=== PATIENT | male | born 1945 | race Caucasian/White ===

== ENCOUNTER 2023-05-25 14:18 | Inpatient (IN) | payer OTHER ==
[2023-05-25 15:28] LABS: HEMATOCRIT 38.4 % (35.4-49); HEMOGLOBIN 12.8 G/dL (11.7-16.9); MCH 30.2 pg (25.7-33.7); MCHC 33.2 g/dl (32.0-35.9); MEAN CELL VOLUME 91.1 fl (80-96); MEAN PLT VOLUME 7.8 fl (7.5-11.1); RBC 4.22 10^6/uL (4.00-5.60); RDW 14.8 % (11.9-15.9); WHITE BLOOD COUNT 7.9 10^3/uL (4.0-10.8)
[2023-05-25 15:38] LABS: PLATELET ESTIMATE ADEQUATE
[2023-05-25 15:47] LABS: ALBUMIN 3.8 g/dl (3.4-5.0); CREATININE 0.8 mg/dl (0.6-1.3); POTASSIUM 3.9 mmol/L (3.5-5.1); SGOT/AST 62.9 U/L (15-37); SGPT/ALT 73.6 U/L (7-52); TOT PROT 6.2 g/dl (6.4-8.2)
[2023-05-25 16:16] LABS: INR 1.42 (0.83-1.09); PROTHROMBIN TIME (PATIENT) 16.4 SEC (9.7-13.0)
[2023-05-25 16:19] LABS: ACTIVATED PTT 33.3 SECONDS (25.2-36.5)
[2023-05-25] MEDS: SODIUM CHLORIDE 1,000 ML IV SCH (21:51)
[2023-05-26 08:48] LABS: HEMATOCRIT 35.9 % (35.4-49); HEMOGLOBIN 12.1 G/dL (11.7-16.9); MCH 30.4 pg (25.7-33.7); MCHC 33.6 g/dl (32.0-35.9); MEAN CELL VOLUME 90.4 fl (80-96); MEAN PLT VOLUME 8.1 fl (7.5-11.1); PLATELET COUNT 336.5 10^3/uL (134-434); RBC 3.97 10^6/uL (4.00-5.60); RDW 14.8 % (11.9-15.9); WHITE BLOOD COUNT 6.4 10^3/uL (4.0-10.8)
[2023-05-26 09:06] LABS: BLOOD UREA NITROGEN 11.7 mg/dl (7-18); CALCIUM 9.6 mg/dl (8.5-10.1); CREATININE 0.8 mg/dl (0.6-1.3); MAGNESIUM 1.7 mg/dL (1.8-2.4); POTASSIUM 3.9 mmol/L (3.5-5.1)
[2023-05-26] MEDS ORDERED: LORazepam 2 MG/ML SDV VIAL IVPUSH PRN (09:06)
[2023-05-26] MEDS ORDERED: LOSARTAN POTASSIUM 25 MG TABLET PO SCH (10:00)
[2023-05-26] MEDS: LOSARTAN POTASSIUM 25 MG TABLET PO SCH (10:21)
[2023-05-26] MEDS: amLODIPine BESYLATE 10 MG TABLET (FP) PO SCH (10:21)
[2023-05-26 15:19] VITALS: BMI 30.2
[2023-05-27] MEDS: LOSARTAN POTASSIUM 25 MG TABLET PO SCH (10:08)
[2023-05-27] MEDS: amLODIPine BESYLATE 10 MG TABLET (FP) PO SCH (10:08)
[2023-05-28] MEDS: SODIUM CHLORIDE 1,000 ML IV SCH (10:46)
[2023-05-28] MEDS: LOSARTAN POTASSIUM 25 MG TABLET PO SCH (10:46)
[2023-05-28] MEDS: amLODIPine BESYLATE 10 MG TABLET (FP) PO SCH (10:46)
[2023-05-28 11:25] LABS: HEMATOCRIT 34.7 % (35.4-49); HEMOGLOBIN 11.6 G/dL (11.7-16.9); MCH 30.6 pg (25.7-33.7); MCHC 33.5 g/dl (32.0-35.9); MEAN CELL VOLUME 91.4 fl (80-96); MEAN PLT VOLUME 8.2 fl (7.5-11.1); PLATELET COUNT 287.2 10^3/uL (134-434); RDW 15.2 % (11.9-15.9); WHITE BLOOD COUNT 6.9 10^3/uL (4.0-10.8)
[2023-05-28 11:39] LABS: ALBUMIN 3.4 g/dl (3.4-5.0); BILIRUBIN,TOTAL 0.9 mg/dl (0.2-1); BLOOD UREA NITROGEN 11.2 mg/dl (7-18); CALCIUM 9.3 mg/dl (8.5-10.1); CREATININE 0.7 mg/dl (0.6-1.3); POTASSIUM 4.2 mmol/L (3.5-5.1); SGOT/AST 54.3 U/L (15-37); SGPT/ALT 58.1 U/L (7-52); TOT PROT 5.9 g/dl (6.4-8.2)
[2023-05-29 07:39] LABS: HEMATOCRIT 38.8 % (35.4-49); HEMOGLOBIN 12.9 G/dL (11.7-16.9); MCH 30.2 pg (25.7-33.7); MCHC 33.2 g/dl (32.0-35.9); MEAN CELL VOLUME 90.9 fl (80-96); MEAN PLT VOLUME 8.1 fl (7.5-11.1); PLATELET COUNT 331.2 10^3/uL (134-434); RBC 4.27 10^6/uL (4.00-5.60); RDW 14.9 % (11.9-15.9); WHITE BLOOD COUNT 8.6 10^3/uL (4.0-10.8)
[2023-05-29 09:08] LABS: ALBUMIN 3.9 g/dl (3.4-5.0); BLOOD UREA NITROGEN 10.4 mg/dl (7-18); CALCIUM 9.9 mg/dl (8.5-10.1); CREATININE 0.8 mg/dl (0.6-1.3); POTASSIUM 4.1 mmol/L (3.5-5.1); SGOT/AST 74.7 U/L (15-37); SGPT/ALT 82.4 U/L (7-52); TOT PROT 6.8 g/dl (6.4-8.2)
[2023-05-29] MEDS: LOSARTAN POTASSIUM 25 MG TABLET PO SCH (09:24)
[2023-05-29] MEDS: amLODIPine BESYLATE 10 MG TABLET (FP) PO SCH (09:24)
[2023-05-29 10:07] LABS: PLATELET ESTIMATE SLT INCREASE
[2023-05-29 10:19] LABS: BILIRUBIN,TOTAL 1.4 mg/dl (0.2-1)
[2023-05-29 21:38] VITALS: RESP 18
[2023-05-30] MEDS ORDERED: traMADol HCL 50 MG TABLET PO PRN (08:30)
[2023-05-30] MEDS ORDERED: IBUPROFEN 600 MG TABLET (FP) PO PRN (08:30)
[2023-05-30] MEDS ORDERED: KETOROLAC TROMETHAMINE 15 MG/ML VIAL IVPUSH PRN (08:30)
[2023-05-30] MEDS ORDERED: SIMETHICONE 80 MG TAB.CHEW (FP) PO PRN (08:31)
[2023-05-30 09:02] LABS: MCH 29.2 pg (25.7-33.7); MCHC 32.4 g/dl (32.0-35.9); MEAN CELL VOLUME 90.1 fl (80-96); MEAN PLT VOLUME 9.3 fl (7.5-11.1); PLATELET COUNT 321 10^3/uL (134-434); RBC 4.11 M/mm3 (4.00-5.60); RDW 14.3 % (11.9-15.9); WHITE BLOOD COUNT 8.5 K/mm3 (4.0-10.0)
[2023-05-30 09:23] LABS: ALBUMIN 3.1 g/dl (3.4-5.0); BLOOD UREA NITROGEN 11.3 mg/dL (7-18); CALCIUM 9.8 mg/dL (8.5-10.1)
[2023-05-30 09:26] LABS: CREATININE 0.8 mg/dL (0.55-1.3)
[2023-05-30 09:28] LABS: BILIRUBIN,TOTAL 1.2 mg/dL (0.2-1); TOT PROT 6.4 g/dl (6.4-8.2)
[2023-05-30] MEDS ORDERED: ENOXAPARIN NA (PORCINE) 40 MG/0.4 ML DISP.SYRIN SQ SCH (10:00)
[2023-05-30] MEDS: LOSARTAN POTASSIUM 25 MG TABLET PO SCH (10:08)
[2023-05-30] MEDS: amLODIPine BESYLATE 10 MG TABLET (FP) PO SCH (10:08)
[2023-05-30] MEDS ORDERED: ENOXAPARIN NA (PORCINE) 100 MG/1 ML DISP.SYRIN SQ SCH (10:15)
[2023-05-30] MEDS: SODIUM CHLORIDE 1,000 ML IV SCH (12:08)
[2023-05-30] MEDS ORDERED: ENOXAPARIN NA (PORCINE) 40 MG/0.4 ML DISP.SYRIN SQ ONE (13:00)
[2023-05-30] MEDS: PANTOPRAZOLE 40 MG TABLET PO SCH (13:07)
[2023-05-30] MEDS ORDERED: LACTATED RINGERS SOLUTION 1,000 ML/1,000 ML INFUS.BAG IV STA (13:36)
[2023-05-30] MEDS: MAG HYDROX/AL HYDROX/SIMETH -MYLANTA- ORAL SUSPENSION PO SCH ×2 (15:34→15:37)
[2023-05-30] MEDS: MAG HYDROX/AL HYDROX/SIMETH 30 ML UNIT-DOSE CUP PO SCH (22:29)
[2023-05-30] MEDS: ENOXAPARIN NA (PORCINE) 100 MG/1 ML DISP.SYRIN SQ SCH (22:30)
[2023-05-31] MEDS: MAG HYDROX/AL HYDROX/SIMETH -MYLANTA- ORAL SUSPENSION PO SCH (00:43)
[2023-05-31] MEDS: MAG HYDROX/AL HYDROX/SIMETH 30 ML UNIT-DOSE CUP PO SCH (06:16)
[2023-05-31 07:36] VITALS: BP 128/60; PULSE 76; TEMP 98.6
[2023-05-31] MEDS: amLODIPine BESYLATE 10 MG TABLET (FP) PO SCH (09:49)
[2023-05-31] MEDS: ENOXAPARIN NA (PORCINE) 100 MG/1 ML DISP.SYRIN SQ SCH (09:49)
[2023-05-31] MEDS: PANTOPRAZOLE 40 MG TABLET PO SCH (09:49)
[2023-05-31] MEDS: LOSARTAN POTASSIUM 25 MG TABLET PO SCH (09:49)
== END 2023-05-31 13:06 | disposition home or self-care (01) | DRG 435 ==
LOC: FER 14:18 → FM/S 18:07 → J8W 05-29 11:45
PROVIDERS: ADMIT Internal Medicine; ATTEND Internal Medicine
PROC: 0FB13ZX Excision of Right Lobe Liver, Percutaneous Approach, Diagnostic (ICD-10-PCS; principal; 2023-05-29)
DX: C25.7 Malignant neoplasm of other parts of pancreas (principal); I81 Portal vein thrombosis; C78.7 Secondary malignant neoplasm of liver and intrahepatic bile duct; C78.00 Secondary malignant neoplasm of unspecified lung; I47.20 Ventricular tachycardia, unspecified; J90 Pleural effusion, not elsewhere classified; I10 Essential (primary) hypertension; E78.5 Hyperlipidemia, unspecified; K80.80 Other cholelithiasis without obstruction; E66.9 Obesity, unspecified; Z68.30 Body mass index [BMI] 30.0-30.9, adult; K82.8 Other specified diseases of gallbladder; R74.01 Elevation of levels of liver transaminase levels; R91.8 Other nonspecific abnormal finding of lung field; Z85.46 Personal history of malignant neoplasm of prostate; Z96.653 Presence of artificial knee joint, bilateral
CPT/HCPCS: 0241U-QW; 36415; 47000; 71046-TC-FY; 71275-TC; 74177-TC; 74183-TC; 76700-TC; 77012-TC; 80048; 80053; 81003; 82105; 82378; 82962; 83605; 83690; 83735; 84153; 84484; 85027; 85610; 85730; 86301; 86850; 86900; 86901; 87040; 88307-TC; 88341-TC; 93005; 99285-25; A9579; Q9967

== ENCOUNTER 2023-06-16 04:44 | Day surgery (SDC) | payer OTHER ==
[2023-06-14 12:11] VITALS: BMI 29.7
[2023-06-16 08:17] LABS: BASO % 0.8 % (0-2.0); EOS % 4.6 % (0-4.5); HEMATOCRIT 35.4 % (35.4-49); HEMOGLOBIN 11.5 GM/dL (11.7-16.9); LYMPH % 14.9 % (8-40); MCH 29.3 pg (25.7-33.7); MCHC 32.4 g/dl (32.0-35.9); MEAN CELL VOLUME 90.5 fl (80-96); MEAN PLT VOLUME 9.4 fl (7.5-11.1); MONO % 9.2 % (3.8-10.2); NEUT % 70.5 % (42.8-82.8); PLATELET COUNT 276 10^3/uL (134-434); RBC 3.91 M/mm3 (4.00-5.60); RDW 15.2 % (11.9-15.9)
[2023-06-16 08:18] LABS: INR 1.33 (0.83-1.09); PROTHROMBIN TIME (PATIENT) 15.4 SEC (9.7-13.0)
[2023-06-16] MEDS ORDERED: MIDAZOLAM HCL 2 MG/2 ML SINGLE DOSE VIAL ONE (10:21)
[2023-06-16] MEDS ORDERED: MIDAZOLAM HCL 2 MG/2 ML SINGLE DOSE VIAL IVPUSH ONE (10:45)
[2023-06-16 12:41] VITALS: BP 136/74; PULSE 76; RESP 18; TEMP 98.6
== END 2023-06-16 12:40 | disposition home or self-care (01) ==
LOC: JRADIR 04:44
PROVIDERS: ATTEND Registered Nurse
PROC: 0JH63WZ Insertion of Totally Implantable Vascular Access Device into Chest Subcutaneous Tissue and Fascia, Percutaneous Approach (ICD-10-PCS; principal; 2023-06-16)
PROC: 02HV33Z Insertion of Infusion Device into Superior Vena Cava, Percutaneous Approach (ICD-10-PCS; 2023-06-16)
PROC: B518ZZA Fluoroscopy of Superior Vena Cava, Guidance (ICD-10-PCS; 2023-06-16)
DX: C25.9 Malignant neoplasm of pancreas, unspecified (principal)
CPT/HCPCS: 36561; 77001; C1788; 36415; 85025; 85610

== ENCOUNTER 2023-06-21 13:52 | Day surgery (SDC) | payer OTHER ==
[~2023-06-21 13:52] MED LIST: DEXAMETHASONE SODIUM PHOSPHATE IVPB ONE; GEMCITABINE HCL IVPB ONE; GRANISETRON HCL IVPB ONE; SODIUM CHLORIDE IVPB ONE
[2023-06-21 14:49] LABS: BASO % 0.9 % (0-2.0); EOS % 3.8 % (0-4.5); HEMATOCRIT 33.6 % (35.4-49); HEMOGLOBIN 11.2 GM/dL (11.7-16.9); MCH 29.6 pg (25.7-33.7); MCHC 33.2 g/dl (32.0-35.9); MEAN PLT VOLUME 9.2 fl (7.5-11.1); NEUT % 70.3 % (42.8-82.8); PLATELET COUNT 284 10^3/uL (134-434); RBC 3.78 M/mm3 (4.00-5.60); RDW 15.9 % (11.9-15.9); WHITE BLOOD COUNT 7.1 K/mm3 (4.0-10.0)
[2023-06-21 15:00] LABS: POTASSIUM 4.2 mmol/L (3.5-5.1)
[2023-06-21 15:04] LABS: BLOOD UREA NITROGEN 15.8 mg/dL (7-18); CALCIUM 10.2 mg/dL (8.5-10.1)
[2023-06-21 15:07] LABS: BILIRUBIN,DIRECT 1.6 mg/dL (0.0-0.2); CREATININE 0.9 mg/dL (0.55-1.3)
[2023-06-21 15:09] LABS: BILIRUBIN,TOTAL 2.6 mg/dL (0.2-1); TOT PROT 6.7 g/dl (6.4-8.2)
[2023-06-21 16:12] VITALS: PULSE 86; RESP 18; TEMP 98.5
[2023-06-21] MEDS ORDERED: BACITRACIN ZINC 15 GM TUBE TOPICAL OINTMENT TP SCH (17:30)
[2023-06-21 17:47] VITALS: BP 137/69
[2023-06-21] MEDS ORDERED: PORTA CATH FLUSH 10 ML IVPUSH PRN (17:47)
== END 2023-06-21 17:45 | disposition home or self-care (01) ==
LOC: JONCCHEMO 13:52 → J7W 13:53 → JONCCHEMO 17:45
PROVIDERS: ATTEND Specialist
DX: Z51.11 Encounter for antineoplastic chemotherapy (principal)
CPT/HCPCS: 36415; 80048; 80076; 85025; 96413

== ENCOUNTER 2023-06-28 11:35 | Day surgery (SDC) | payer OTHER ==
[2023-06-28 12:12] LABS: HEMATOCRIT 30.7 % (35.4-49); HEMOGLOBIN 10.5 GM/dL (11.7-16.9); MCH 29.8 pg (25.7-33.7); MCHC 34.2 g/dl (32.0-35.9); MEAN CELL VOLUME 87.1 fl (80-96); MEAN PLT VOLUME 8.6 fl (7.5-11.1); PLATELET COUNT 203 10^3/uL (134-434); RBC 3.52 M/mm3 (4.00-5.60); RDW 16.3 % (11.9-15.9); WHITE BLOOD COUNT 8.3 K/mm3 (4.0-10.0)
[2023-06-28 12:26] LABS: POTASSIUM 3.6 mmol/L (3.5-5.1)
[2023-06-28 12:28] LABS: CALCIUM 9.5 mg/dL (8.5-10.1)
[2023-06-28 12:29] LABS: ALBUMIN 2.6 g/dl (3.4-5.0); BLOOD UREA NITROGEN 13.9 mg/dL (7-18)
[2023-06-28 12:32] LABS: BILIRUBIN,DIRECT 2.6 mg/dL (0.0-0.2); CREATININE 0.8 mg/dL (0.55-1.3)
[2023-06-28 12:34] LABS: BILIRUBIN,TOTAL 3.3 mg/dL (0.2-1); TOT PROT 6.2 g/dl (6.4-8.2)
[2023-06-28 12:35] LABS: ANISOCYTOSIS 0; HELMET CELLS 0; HOWELL-JOLLY BODIES 0; MACROCYTOSIS 0; OVALOCYTE 0; ROULEAU 0; SICKELED CELLS 0; TARGET CELLS 0; TEAR DROP CELLS 0; TOXIC GRANULATION 0
[2023-06-28 17:28] VITALS: TEMP 98.2
[2023-06-28 17:34] VITALS: BP 136/90; PULSE 82; RESP 18
[2023-06-28] MEDS ORDERED: PORTA CATH FLUSH 10 ML IVPUSH PRN (17:34)
== END 2023-06-28 15:50 | disposition home or self-care (01) ==
LOC: JONCCHEMO 11:35 → J7W 11:38 → JONCCHEMO 15:50
PROVIDERS: ATTEND Specialist
DX: Z51.11 Encounter for antineoplastic chemotherapy (principal); C78.89 Secondary malignant neoplasm of other digestive organs; Z85.46 Personal history of malignant neoplasm of prostate
CPT/HCPCS: 36415; 80048; 80076; 85025; 96367; 96413

== ENCOUNTER 2023-07-24 09:07 | Day surgery (SDC) | payer OTHER ==
[2023-07-24] MEDS ORDERED: DEXAMETHASONE SODIUM PHOSPHATE 10 MG in SODIUM CHLORIDE 50 ML IVPB ONE (10:00)
[2023-07-24] MEDS ORDERED: FOSAPREPITANT DIMEGLUMINE 150 MG in SODIUM CHLORIDE 145 ML IVPB ONE (10:00)
[2023-07-24] MEDS ORDERED: ATROPINE SO4 0.4 MG/1 ML VIAL IVPUSH ONE (10:00)
[2023-07-24] MEDS ORDERED: PALONOSETRON HCL 0.25 MG/5 ML VIAL IVPUSH ONE (10:00)
[2023-07-24 10:11] LABS: BASO % 1.3 % (0-2.0); EOS % 2.1 % (0-4.5); HEMATOCRIT 31.2 % (35.4-49); HEMOGLOBIN 10.7 GM/dL (11.7-16.9); LYMPH % 12.7 % (8-40); MCH 32.5 pg (25.7-33.7); MCHC 34.3 g/dl (32.0-35.9); MEAN CELL VOLUME 94.9 fl (80-96); MEAN PLT VOLUME 9.6 fl (7.5-11.1); MONO % 9.6 % (3.8-10.2); NEUT % 74.3 % (42.8-82.8); PLATELET COUNT 209 10^3/uL (134-434); RBC 3.29 M/mm3 (4.00-5.60); WHITE BLOOD COUNT 8.2 K/mm3 (4.0-10.0)
[2023-07-24 10:43] LABS: POTASSIUM 3.2 mmol/L (3.5-5.1)
[2023-07-24 10:45] LABS: ALBUMIN 2.4 g/dl (3.4-5.0); CALCIUM 9.5 mg/dL (8.5-10.1)
[2023-07-24 10:46] LABS: BLOOD UREA NITROGEN 10.4 mg/dL (7-18)
[2023-07-24 10:47] LABS: BILIRUBIN,DIRECT 2.2 mg/dL (0.0-0.2)
[2023-07-24 10:48] LABS: CREATININE 0.8 mg/dL (0.55-1.3)
[2023-07-24 10:49] LABS: ANISOCYTOSIS 2+; MACROCYTOSIS 1+
[2023-07-24 10:50] LABS: BILIRUBIN,TOTAL 2.8 mg/dL (0.2-1); TOT PROT 5.6 g/dl (6.4-8.2)
[2023-07-24] MEDS ORDERED: POTASSIUM CHLORIDE TABS 20 MEQ TABLET.ER (FP) PO ONE (12:15)
[2023-07-24] MEDS ORDERED: DEXTROSE 5% IVPB ONE ×2 (12:30→13:00)
[2023-07-24] MEDS ORDERED: LEUCOVORIN CALCIUM IVPB ONE (12:30)
[2023-07-24] MEDS ORDERED: WATER IVPB ONE ×2 (12:30→13:00)
[2023-07-24] MEDS ORDERED: IRINOTECAN HCL IVPB ONE (13:00)
[2023-07-24] MEDS ORDERED: FLUOROURACIL CP ONE (14:30)
[2023-07-24] MEDS ORDERED: SODIUM CHLORIDE CP ONE (14:30)
[2023-07-24 15:30] VITALS: TEMP 97.9
[2023-07-24] MEDS ORDERED: PORTA CATH FLUSH 10 ML IVPUSH PRN (15:30)
[2023-07-24 18:47] VITALS: BP 104/71; PULSE 89; RESP 18
== END 2023-07-24 18:10 | disposition home or self-care (01) ==
LOC: JONCCHEMO 09:07 → J7W 09:14 → JONCCHEMO 18:10
PROVIDERS: ATTEND Specialist
PROC: 3E04305 Introduction of Other Antineoplastic into Central Vein, Percutaneous Approach (ICD-10-PCS; principal; 2023-07-24)
PROC: 3E043GC Introduction of Other Therapeutic Substance into Central Vein, Percutaneous Approach (ICD-10-PCS; 2023-07-24)
PROC: 3E04305 Introduction of Other Antineoplastic into Central Vein, Percutaneous Approach (ICD-10-PCS; 2023-07-24)
DX: Z51.11 Encounter for antineoplastic chemotherapy (principal); C78.89 Secondary malignant neoplasm of other digestive organs; Z85.46 Personal history of malignant neoplasm of prostate
CPT/HCPCS: 36415; 80048; 80076; 82378; 85025; 86301; 96366; 96367; 96375; 96413; 96415; 96417; G0498; J1453; J2469; J9206; J9263

== ENCOUNTER 2023-07-26 13:21 | Day surgery (SDC) | payer OTHER ==
[2023-07-26 16:39] VITALS: BP 111/68; PULSE 89; RESP 18; TEMP 98
[2023-07-26] MEDS ORDERED: PORTA CATH FLUSH 10 ML IVPUSH PRN (16:40)
== END 2023-07-26 14:30 | disposition home or self-care (01) ==
LOC: JONCCHEMO 13:21 → J7W 13:22 → JONCCHEMO 14:30
PROVIDERS: ATTEND Specialist
DX: Z53.8 Procedure and treatment not carried out for other reasons (principal)
CPT/HCPCS: 96365

== ENCOUNTER 2023-08-09 13:09 | Day surgery (SDC) | payer OTHER ==
[2023-08-09 13:06] LABS: EOS % 5.2 % (0-4.5); HEMATOCRIT 31.3 % (35.4-49); HEMOGLOBIN 10.7 GM/dL (11.7-16.9); LYMPH % 27.1 % (8-40); MCH 32.6 pg (25.7-33.7); MCHC 34.2 g/dl (32.0-35.9); MEAN CELL VOLUME 95.4 fl (80-96); MEAN PLT VOLUME 9.1 fl (7.5-11.1); MONO % 10.7 % (3.8-10.2); PLATELET COUNT 282 10^3/uL (134-434); RBC 3.29 M/mm3 (4.00-5.60); RDW 19.9 % (11.9-15.9); WHITE BLOOD COUNT 4.8 K/mm3 (4.0-10.0)
[~2023-08-09 13:09] MED LIST changes: +ATROPINE SO4 0.4 MG/1 ML VIAL IVPUSH ONE; +DEXAMETHASONE SODIUM PHOSPHATE 10 MG in SODIUM CHLORIDE 50 ML IVPB ONE; -DEXAMETHASONE SODIUM PHOSPHATE IVPB ONE; +DEXTROSE 5% IVPB ONE; +FOSAPREPITANT DIMEGLUMINE 150 MG in SODIUM CHLORIDE 145 ML IVPB ONE; -GEMCITABINE HCL IVPB ONE; -GRANISETRON HCL IVPB ONE; +IRINOTECAN HCL IVPB ONE; +LEUCOVORIN CALCIUM IVPB ONE; +PALONOSETRON HCL 0.25 MG/5 ML VIAL IVPUSH ONE; -SODIUM CHLORIDE IVPB ONE; +WATER IVPB ONE
[2023-08-09 13:24] LABS: POTASSIUM 3.8 mmol/L (3.5-5.1)
[2023-08-09 13:26] LABS: ALBUMIN 2.4 g/dl (3.4-5.0); BLOOD UREA NITROGEN 8.4 mg/dL (7-18); CALCIUM 9.7 mg/dL (8.5-10.1)
[2023-08-09 13:29] LABS: BILIRUBIN,DIRECT 2.3 mg/dL (0.0-0.2); CREATININE 0.7 mg/dL (0.55-1.3)
[2023-08-09 13:31] LABS: BILIRUBIN,TOTAL 2.7 mg/dL (0.2-1)
[2023-08-09] MEDS ORDERED: SODIUM CHLORIDE CP ONE (14:00)
[2023-08-09] MEDS ORDERED: FLUOROURACIL CP ONE (14:00)
[2023-08-09 18:34] VITALS: BP 123/70; PULSE 99; RESP 20; TEMP 98.1
[2023-08-09] MEDS ORDERED: PORTA CATH FLUSH 10 ML IVPUSH PRN (18:36)
== END 2023-08-09 19:34 | disposition home or self-care (01) ==
LOC: JONCCHEMO 13:09 → J7W 13:10 → JONCCHEMO 19:34
PROVIDERS: ATTEND Internal Medicine Hematology & Oncology
DX: Z51.11 Encounter for antineoplastic chemotherapy (principal); C25.2 Malignant neoplasm of tail of pancreas; C78.7 Secondary malignant neoplasm of liver and intrahepatic bile duct; C78.00 Secondary malignant neoplasm of unspecified lung
CPT/HCPCS: 36415; 80048; 80076; 85025; 96366; 96367; 96375; 96413; 96415; 96417; G0498; J1453; J2469; J9206; J9263

== ENCOUNTER 2023-08-11 16:30 | Day surgery (SDC) | payer OTHER ==
[2023-08-11 17:11] VITALS: BP 113/57; PULSE 75; RESP 18; TEMP 98.1
[2023-08-11] MEDS ORDERED: PORTA CATH FLUSH 10 ML IVPUSH PRN (17:13)
== END 2023-08-11 17:10 | disposition home or self-care (01) ==
LOC: JONCCHEMO 16:30
PROVIDERS: ATTEND Internal Medicine Hematology & Oncology
DX: Z53.8 Procedure and treatment not carried out for other reasons (principal)

== ENCOUNTER 2023-09-06 08:52 | Day surgery (SDC) | payer OTHER ==
[~2023-09-06 08:52] MED LIST changes: -ATROPINE SO4 0.4 MG/1 ML VIAL IVPUSH ONE; -DEXAMETHASONE SODIUM PHOSPHATE 10 MG in SODIUM CHLORIDE 50 ML IVPB ONE; -DEXTROSE 5% IVPB ONE; -FOSAPREPITANT DIMEGLUMINE 150 MG in SODIUM CHLORIDE 145 ML IVPB ONE; -IRINOTECAN HCL IVPB ONE; -LEUCOVORIN CALCIUM IVPB ONE; -PALONOSETRON HCL 0.25 MG/5 ML VIAL IVPUSH ONE; +SODIUM CHLORIDE 250 ML IV ONE; -WATER IVPB ONE
[2023-09-06] MEDS ORDERED: DEXAMETHASONE SODIUM PHOSPHATE 10 MG in SODIUM CHLORIDE 50 ML IVPB ONE (09:30)
[2023-09-06] MEDS ORDERED: PALONOSETRON HCL 0.25 MG/5 ML VIAL IVPUSH ONE (09:30)
[2023-09-06] MEDS ORDERED: ATROPINE SO4 0.4 MG/1 ML VIAL IVPUSH ONE (09:30)
[2023-09-06] MEDS ORDERED: FOSAPREPITANT DIMEGLUMINE 150 MG in SODIUM CHLORIDE 145 ML IVPB ONE (09:30)
[2023-09-06 09:54] LABS: BASO % 0.9 % (0-2.0); EOS % 2.5 % (0-4.5); HEMATOCRIT 33.9 % (35.4-49); HEMOGLOBIN 10.9 GM/dL (11.7-16.9); LYMPH % 19.7 % (8-40); MCH 31.7 pg (25.7-33.7); MCHC 32.1 g/dl (32.0-35.9); MEAN CELL VOLUME 98.9 fl (80-96); MEAN PLT VOLUME 9.3 fl (7.5-11.1); MONO % 8.5 % (3.8-10.2); NEUT % 68.4 % (42.8-82.8); PLATELET COUNT 214 10^3/uL (134-434); RBC 3.43 M/mm3 (4.00-5.60); RDW 17.3 % (11.9-15.9); WHITE BLOOD COUNT 4.7 K/mm3 (4.0-10.0)
[2023-09-06 10:10] LABS: POTASSIUM 3.5 mmol/L (3.5-5.1)
[2023-09-06 10:12] LABS: BLOOD UREA NITROGEN 7.3 mg/dL (7-18); CALCIUM 10.2 mg/dL (8.5-10.1)
[2023-09-06 10:13] LABS: ALBUMIN 2.7 g/dl (3.4-5.0)
[2023-09-06 10:15] LABS: BILIRUBIN,DIRECT 1.3 mg/dL (0.0-0.2)
[2023-09-06 10:16] LABS: CREATININE 0.6 mg/dL (0.55-1.3)
[2023-09-06 10:17] LABS: BILIRUBIN,TOTAL 1.7 mg/dL (0.2-1); TOT PROT 5.8 g/dl (6.4-8.2)
[2023-09-06] MEDS ORDERED: WATER IVPB ONE ×2 (12:00→12:30)
[2023-09-06] MEDS ORDERED: DEXTROSE 5% IVPB ONE ×2 (12:00→12:30)
[2023-09-06] MEDS ORDERED: LEUCOVORIN CALCIUM IVPB ONE (12:00)
[2023-09-06] MEDS ORDERED: IRINOTECAN HCL IVPB ONE (12:30)
[2023-09-06] MEDS ORDERED: SODIUM CHLORIDE CP ONE (14:00)
[2023-09-06] MEDS ORDERED: FLUOROURACIL CP ONE (14:00)
[2023-09-06 17:23] VITALS: BP 136/65; PULSE 95; RESP 18; TEMP 98.4
== END 2023-09-06 17:24 | disposition home or self-care (01) ==
LOC: JONCCHEMO 08:52 → J7W 09:01 → JONCCHEMO 17:24
PROVIDERS: ATTEND Internal Medicine Hematology & Oncology
DX: Z51.11 Encounter for antineoplastic chemotherapy (principal); C25.9 Malignant neoplasm of pancreas, unspecified
CPT/HCPCS: 36415; 80048; 80076; 85025; 96366; 96367; 96375; 96413; 96415; 96417; G0498; J1453; J2469; J9206; J9263

== ENCOUNTER 2023-09-08 10:55 | Day surgery (SDC) | payer OTHER ==
[2023-09-08 15:34] VITALS: BP 128/65; PULSE 89; RESP 18; TEMP 98
[2023-09-08] MEDS ORDERED: PORTA CATH FLUSH 10 ML IVPUSH PRN (15:34)
== END 2023-09-08 15:35 | disposition home or self-care (01) ==
LOC: JONCCHEMO 10:55 → J7W 10:56 → JONCCHEMO 15:35
PROVIDERS: ATTEND Internal Medicine Hematology & Oncology
DX: Z53.8 Procedure and treatment not carried out for other reasons (principal)
CPT/HCPCS: 96365

== ENCOUNTER 2023-09-20 08:46 | Day surgery (SDC) | payer OTHER ==
[2023-09-20] MEDS ORDERED: SODIUM CHLORIDE 250 ML IV ONE (09:00)
[2023-09-20 09:25] LABS: BASO % 0.7 % (0-2.0); EOS % 2.5 % (0-4.5); HEMATOCRIT 33.6 % (35.4-49); HEMOGLOBIN 11.1 GM/dL (11.7-16.9); MCH 31.9 pg (25.7-33.7); MCHC 33.1 g/dl (32.0-35.9); MEAN CELL VOLUME 96.4 fl (80-96); MEAN PLT VOLUME 9.1 fl (7.5-11.1); MONO % 9.6 % (3.8-10.2); NEUT % 67.2 % (42.8-82.8); PLATELET COUNT 228 10^3/uL (134-434); RBC 3.48 M/mm3 (4.00-5.60); RDW 16.6 % (11.9-15.9); WHITE BLOOD COUNT 5.1 K/mm3 (4.0-10.0)
[2023-09-20] MEDS ORDERED: DEXAMETHASONE SODIUM PHOSPHATE 10 MG in SODIUM CHLORIDE 50 ML IVPB ONE (09:30)
[2023-09-20] MEDS ORDERED: FOSAPREPITANT DIMEGLUMINE 150 MG in SODIUM CHLORIDE 145 ML IVPB ONE (09:30)
[2023-09-20] MEDS ORDERED: ATROPINE SO4 0.4 MG/1 ML VIAL IVPUSH ONE (09:30)
[2023-09-20] MEDS ORDERED: PALONOSETRON HCL 0.25 MG/5 ML VIAL IVPUSH ONE (09:30)
[2023-09-20 09:54] LABS: POTASSIUM 3.7 mmol/L (3.5-5.1)
[2023-09-20 10:02] LABS: BLOOD UREA NITROGEN 10.1 mg/dL (7-18); CALCIUM 10.4 mg/dL (8.5-10.1)
[2023-09-20 10:04] LABS: BILIRUBIN,DIRECT 1.2 mg/dL (0.0-0.2)
[2023-09-20 10:05] LABS: ALBUMIN 2.9 g/dl (3.4-5.0); CREATININE 0.6 mg/dL (0.55-1.3)
[2023-09-20 10:06] LABS: BILIRUBIN,TOTAL 1.5 mg/dL (0.2-1); TOT PROT 6.2 g/dl (6.4-8.2)
[2023-09-20] MEDS ORDERED: DEXTROSE 5% IVPB ONE ×2 (12:00→12:30)
[2023-09-20] MEDS ORDERED: WATER IVPB ONE ×2 (12:00→12:30)
[2023-09-20] MEDS ORDERED: LEUCOVORIN CALCIUM IVPB ONE (12:00)
[2023-09-20] MEDS ORDERED: IRINOTECAN HCL IVPB ONE (12:30)
[2023-09-20] MEDS ORDERED: SODIUM CHLORIDE CP ONE (14:00)
[2023-09-20] MEDS ORDERED: FLUOROURACIL CP ONE (14:00)
[2023-09-20 17:56] VITALS: BP 118/62; PULSE 93; RESP 18; TEMP 98.1
== END 2023-09-20 16:45 | disposition home or self-care (01) ==
LOC: JONCCHEMO 08:46 → J7W 08:46 → JONCCHEMO 16:45
PROVIDERS: ATTEND Internal Medicine Hematology & Oncology
PROC: 3E04305 Introduction of Other Antineoplastic into Central Vein, Percutaneous Approach (ICD-10-PCS; principal; 2023-09-20)
PROC: 3E033GC Introduction of Other Therapeutic Substance into Peripheral Vein, Percutaneous Approach (ICD-10-PCS; 2023-09-20)
PROC: 3E0337Z Introduction of Electrolytic and Water Balance Substance into Peripheral Vein, Percutaneous Approach (ICD-10-PCS; 2023-09-20)
DX: Z51.11 Encounter for antineoplastic chemotherapy (principal); C25.2 Malignant neoplasm of tail of pancreas
CPT/HCPCS: 36415; 80048; 80076; 85025; 96366; 96367; 96375; 96413; 96415; 96417; G0498; J1453; J2469; J9206; J9263

== ENCOUNTER 2023-09-22 15:47 | Day surgery (SDC) | payer OTHER ==
[2023-09-22 16:13] VITALS: BP 137/68; PULSE 82; RESP 18; TEMP 97.9
[2023-09-22] MEDS ORDERED: PORTA CATH FLUSH 10 ML IVPUSH PRN (16:13)
== END 2023-09-22 16:13 | disposition home or self-care (01) ==
LOC: J7W 15:47 → JONCCHEMO 15:47
PROVIDERS: ATTEND Internal Medicine Hematology & Oncology
DX: Z53.8 Procedure and treatment not carried out for other reasons (principal)

== ENCOUNTER 2023-10-04 08:47 | Day surgery (SDC) | payer OTHER ==
[2023-10-04] MEDS ORDERED: SODIUM CHLORIDE 250 ML IV ONE (09:30)
[2023-10-04 09:31] LABS: EOS % 2.2 % (0-4.5); HEMATOCRIT 32.6 % (35.4-49); HEMOGLOBIN 10.9 GM/dL (11.7-16.9); MCH 32.2 pg (25.7-33.7); MCHC 33.4 g/dl (32.0-35.9); MEAN CELL VOLUME 96.4 fl (80-96); MEAN PLT VOLUME 8.2 fl (7.5-11.1); NEUT % 65.8 % (42.8-82.8); PLATELET COUNT 174 10^3/uL (134-434); RBC 3.38 M/mm3 (4.00-5.60); RDW 16.5 % (11.9-15.9); WHITE BLOOD COUNT 4.9 K/mm3 (4.0-10.0)
[2023-10-04] MEDS ORDERED: PALONOSETRON HCL 0.25 MG/5 ML VIAL IVPUSH ONE (10:00)
[2023-10-04] MEDS ORDERED: DEXAMETHASONE SODIUM PHOSPHATE 10 MG in SODIUM CHLORIDE 50 ML IVPB ONE (10:00)
[2023-10-04] MEDS ORDERED: ATROPINE SO4 0.4 MG/1 ML VIAL IVPUSH ONE (10:00)
[2023-10-04] MEDS ORDERED: FOSAPREPITANT DIMEGLUMINE 150 MG in SODIUM CHLORIDE 145 ML IVPB ONE (10:00)
[2023-10-04 10:52] LABS: POTASSIUM 3.5 mmol/L (3.5-5.1)
[2023-10-04 10:58] LABS: CREATININE 0.6 mg/dL (0.55-1.3)
[2023-10-04 10:59] LABS: ALBUMIN 2.9 g/dl (3.4-5.0); BLOOD UREA NITROGEN 9.1 mg/dL (7-18); CALCIUM 9.9 mg/dL (8.5-10.1)
[2023-10-04 11:00] LABS: BILIRUBIN,TOTAL 1.5 mg/dL (0.2-1)
[2023-10-04 11:01] LABS: BILIRUBIN,DIRECT 1.1 mg/dL (0.0-0.2)
[2023-10-04] MEDS ORDERED: WATER IVPB ONE ×2 (12:30→13:00)
[2023-10-04] MEDS ORDERED: DEXTROSE 5% IVPB ONE ×2 (12:30→13:00)
[2023-10-04] MEDS ORDERED: LEUCOVORIN CALCIUM IVPB ONE (12:30)
[2023-10-04] MEDS ORDERED: IRINOTECAN HCL IVPB ONE (13:00)
[2023-10-04] MEDS ORDERED: SODIUM CHLORIDE CP ONE (14:30)
[2023-10-04] MEDS ORDERED: FLUOROURACIL CP ONE (14:30)
[2023-10-04 17:31] VITALS: BP 142/65; PULSE 100; RESP 20; TEMP 98.2
[2023-10-04] MEDS ORDERED: PORTA CATH FLUSH 10 ML IVPUSH PRN (17:31)
== END 2023-10-04 17:20 | disposition home or self-care (01) ==
LOC: JONCCHEMO 08:47 → J7W 08:49 → JONCCHEMO 17:20
PROVIDERS: ATTEND Internal Medicine Hematology & Oncology
DX: Z51.11 Encounter for antineoplastic chemotherapy (principal); C25.2 Malignant neoplasm of tail of pancreas
CPT/HCPCS: 36415; 80048; 80076; 85025; 96366; 96367; 96375; 96413; 96415; 96417; G0498; J1453; J2469; J9206; J9263

== ENCOUNTER 2023-10-18 08:42 | Day surgery (SDC) | payer OTHER ==
[2023-10-18] MEDS ORDERED: SODIUM CHLORIDE 250 ML IV ONE (09:00)
[2023-10-18] MEDS ORDERED: PALONOSETRON HCL 0.25 MG/5 ML VIAL IVPUSH ONE (09:30)
[2023-10-18] MEDS ORDERED: ATROPINE SO4 0.4 MG/1 ML VIAL IVPUSH ONE (09:30)
[2023-10-18] MEDS ORDERED: FOSAPREPITANT DIMEGLUMINE 150 MG in SODIUM CHLORIDE 145 ML IVPB ONE (09:30)
[2023-10-18] MEDS ORDERED: DEXAMETHASONE SODIUM PHOSPHATE 10 MG in SODIUM CHLORIDE 50 ML IVPB ONE (09:30)
[2023-10-18] MEDS ORDERED: WATER IVPB ONE ×2 (12:00→12:30)
[2023-10-18] MEDS ORDERED: LEUCOVORIN CALCIUM IVPB ONE (12:00)
[2023-10-18] MEDS ORDERED: DEXTROSE 5% IVPB ONE ×2 (12:00→12:30)
[2023-10-18] MEDS ORDERED: IRINOTECAN HCL IVPB ONE (12:30)
[2023-10-18] MEDS ORDERED: FLUOROURACIL CP ONE (14:00)
[2023-10-18] MEDS ORDERED: SODIUM CHLORIDE CP ONE (14:00)
[2023-10-18 16:21] VITALS: TEMP 98.3
[2023-10-18] MEDS ORDERED: PORTA CATH FLUSH 10 ML IVPUSH PRN (16:28)
[2023-10-18 16:29] VITALS: BP 159/76; PULSE 91; RESP 18
== END 2023-10-18 15:45 | disposition home or self-care (01) ==
LOC: JONCCHEMO 08:42 → J7W 08:43 → JONCCHEMO 15:45
PROVIDERS: ATTEND Internal Medicine Hematology & Oncology
DX: Z51.11 Encounter for antineoplastic chemotherapy (principal); C25.2 Malignant neoplasm of tail of pancreas
CPT/HCPCS: 96366; 96367; 96375; 96413; 96415; 96417; G0498; J1453; J2469; J9206; J9263

== ENCOUNTER 2023-10-20 13:20 | Day surgery (SDC) | payer OTHER ==
[2023-10-20 16:03] VITALS: BP 152/77; PULSE 81; RESP 18; TEMP 98.1
[2023-10-20] MEDS ORDERED: PORTA CATH FLUSH 10 ML IVPUSH PRN (16:03)
== END 2023-10-20 13:45 | disposition home or self-care (01) ==
LOC: JONCCHEMO 13:20 → J7W 13:25 → JONCCHEMO 13:45
PROVIDERS: ATTEND Internal Medicine Hematology & Oncology
DX: Z53.8 Procedure and treatment not carried out for other reasons (principal)
CPT/HCPCS: 96365

== ENCOUNTER 2023-11-01 08:37 | Day surgery (SDC) | payer OTHER ==
[2023-11-01] MEDS ORDERED: SODIUM CHLORIDE 250 ML IV ONE (09:00)
[2023-11-01] MEDS ORDERED: DEXAMETHASONE SODIUM PHOSPHATE 10 MG in SODIUM CHLORIDE 50 ML IVPB ONE (09:30)
[2023-11-01] MEDS ORDERED: FOSAPREPITANT DIMEGLUMINE 150 MG in SODIUM CHLORIDE 145 ML IVPB ONE (09:30)
[2023-11-01] MEDS ORDERED: ATROPINE SO4 0.4 MG/1 ML VIAL IVPUSH ONE (09:30)
[2023-11-01] MEDS ORDERED: PALONOSETRON HCL 0.25 MG/5 ML VIAL IVPUSH ONE (09:30)
[2023-11-01 10:22] LABS: BASO % 0.7 % (0-2.0); EOS % 2.5 % (0-4.5); HEMOGLOBIN 10.7 GM/dL (11.7-16.9); LYMPH % 25.1 % (8-40); MCH 31.5 pg (25.7-33.7); MCHC 33.4 g/dl (32.0-35.9); MEAN CELL VOLUME 94.2 fl (80-96); MEAN PLT VOLUME 9.1 fl (7.5-11.1); MONO % 9.5 % (3.8-10.2); NEUT % 62.2 % (42.8-82.8); PLATELET COUNT 186 10^3/uL (134-434); RDW 17.3 % (11.9-15.9); WHITE BLOOD COUNT 4.6 K/mm3 (4.0-10.0)
[2023-11-01 11:05] LABS: POTASSIUM 3.3 mmol/L (3.5-5.1)
[2023-11-01 11:07] LABS: CALCIUM 10.2 mg/dL (8.5-10.1)
[2023-11-01 11:08] LABS: ALBUMIN 3.1 g/dl (3.4-5.0); BLOOD UREA NITROGEN 10.6 mg/dL (7-18)
[2023-11-01 11:10] LABS: BILIRUBIN,DIRECT 1.1 mg/dL (0.0-0.2)
[2023-11-01 11:11] LABS: CREATININE 0.5 mg/dL (0.55-1.3)
[2023-11-01 11:12] LABS: BILIRUBIN,TOTAL 1.5 mg/dL (0.2-1); TOT PROT 6.2 g/dl (6.4-8.2)
[2023-11-01] MEDS ORDERED: DEXTROSE 5% IVPB ONE ×2 (12:00→12:30)
[2023-11-01] MEDS ORDERED: LEUCOVORIN CALCIUM IVPB ONE (12:00)
[2023-11-01] MEDS ORDERED: WATER IVPB ONE ×2 (12:00→12:30)
[2023-11-01] MEDS ORDERED: IRINOTECAN HCL IVPB ONE (12:30)
[2023-11-01] MEDS ORDERED: FLUOROURACIL CP ONE (14:00)
[2023-11-01] MEDS ORDERED: SODIUM CHLORIDE CP ONE (14:00)
[2023-11-01 15:14] VITALS: RESP 18; TEMP 98.1
[2023-11-01] MEDS ORDERED: PORTA CATH FLUSH 10 ML IVPUSH PRN (15:21)
[2023-11-01 17:16] VITALS: BP 132/63; PULSE 85
== END 2023-11-01 17:18 | disposition home or self-care (01) ==
LOC: JONCCHEMO 08:37 → J7W 08:43 → JONCCHEMO 17:18
PROVIDERS: ATTEND Internal Medicine Hematology & Oncology
DX: Z51.11 Encounter for antineoplastic chemotherapy (principal); C25.2 Malignant neoplasm of tail of pancreas
CPT/HCPCS: 36415; 80048; 80076; 85025; 96366; 96367; 96375; 96413; 96417; G0498; J1453; J2469; J9206; J9263

== ENCOUNTER 2023-11-15 08:30 | Day surgery (SDC) | payer OTHER ==
[2023-11-15 08:55] LABS: BASO % 1.2 % (0-2.0); EOS % 2.7 % (0-4.5); HEMATOCRIT 31.7 % (35.4-49); HEMOGLOBIN 10.5 GM/dL (11.7-16.9); MCH 31.8 pg (25.7-33.7); MCHC 33.1 g/dl (32.0-35.9); MEAN CELL VOLUME 95.8 fl (80-96); MEAN PLT VOLUME 8.7 fl (7.5-11.1); MONO % 11.2 % (3.8-10.2); NEUT % 61.9 % (42.8-82.8); PLATELET COUNT 195 10^3/uL (134-434); RDW 17.3 % (11.9-15.9); WHITE BLOOD COUNT 4.8 K/mm3 (4.0-10.0)
[2023-11-15 09:10] LABS: POTASSIUM 3.6 mmol/L (3.5-5.1)
[2023-11-15 09:13] LABS: BLOOD UREA NITROGEN 9.9 mg/dL (7-18); CALCIUM 10.2 mg/dL (8.5-10.1)
[2023-11-15 09:16] LABS: BILIRUBIN,DIRECT 1.3 mg/dL (0.0-0.2); CREATININE 0.6 mg/dL (0.55-1.3)
[2023-11-15 09:18] LABS: BILIRUBIN,TOTAL 1.8 mg/dL (0.2-1); TOT PROT 6.3 g/dl (6.4-8.2)
[2023-11-15] MEDS ORDERED: SODIUM CHLORIDE 250 ML IV ONE (09:30)
[2023-11-15] MEDS ORDERED: DEXAMETHASONE SODIUM PHOSPHATE 10 MG in SODIUM CHLORIDE 50 ML IVPB ONE (10:00)
[2023-11-15] MEDS ORDERED: ATROPINE SO4 0.4 MG/1 ML VIAL IVPUSH ONE (10:00)
[2023-11-15] MEDS ORDERED: FOSAPREPITANT DIMEGLUMINE 150 MG in SODIUM CHLORIDE 145 ML IVPB ONE (10:00)
[2023-11-15] MEDS ORDERED: PALONOSETRON HCL 0.25 MG/5 ML VIAL IVPUSH ONE (10:00)
[2023-11-15] MEDS ORDERED: WATER IVPB ONE ×2 (12:30→13:00)
[2023-11-15] MEDS ORDERED: DEXTROSE 5% IVPB ONE ×2 (12:30→13:00)
[2023-11-15] MEDS ORDERED: LEUCOVORIN CALCIUM IVPB ONE (12:30)
[2023-11-15] MEDS ORDERED: IRINOTECAN HCL IVPB ONE (13:00)
[2023-11-15] MEDS ORDERED: SODIUM CHLORIDE CP ONE (15:00)
[2023-11-15] MEDS ORDERED: FLUOROURACIL CP ONE (15:00)
[2023-11-15 17:01] VITALS: RESP 18; TEMP 97.6
[2023-11-15] MEDS ORDERED: PORTA CATH FLUSH 10 ML IVPUSH PRN (17:01)
[2023-11-15 18:45] VITALS: BP 140/68; PULSE 84
== END 2023-11-15 17:40 | disposition home or self-care (01) ==
LOC: JONCCHEMO 08:30 → J7W 08:33 → JONCCHEMO 17:40
PROVIDERS: ATTEND Internal Medicine Hematology & Oncology
DX: Z51.11 Encounter for antineoplastic chemotherapy (principal); C25.2 Malignant neoplasm of tail of pancreas
CPT/HCPCS: 36415; 80048; 80076; 85025; 96367; 96368; 96375; 96413; 96415; 96417; G0498; J1453; J2469; J9206; J9263

== ENCOUNTER 2023-11-29 08:48 | Day surgery (SDC) | payer OTHER ==
[2023-11-29 09:26] LABS: BASO % 0.6 % (0-2.0); EOS % 2.3 % (0-4.5); HEMATOCRIT 29.9 % (35.4-49); HEMOGLOBIN 10.1 GM/dL (11.7-16.9); LYMPH % 23.4 % (8-40); MCH 32.2 pg (25.7-33.7); MCHC 33.8 g/dl (32.0-35.9); MEAN CELL VOLUME 95.3 fl (80-96); MONO % 9.6 % (3.8-10.2); NEUT % 64.1 % (42.8-82.8); PLATELET COUNT 186 10^3/uL (134-434); RBC 3.13 M/mm3 (4.00-5.60); RDW 16.9 % (11.9-15.9); WHITE BLOOD COUNT 4.5 K/mm3 (4.0-10.0)
[2023-11-29] MEDS: SODIUM CHLORIDE 250 ML IV ONE (09:35)
[2023-11-29 09:40] LABS: POTASSIUM 3.3 mmol/L (3.5-5.1)
[2023-11-29 09:42] LABS: BLOOD UREA NITROGEN 13.2 mg/dL (7-18); CALCIUM 10.4 mg/dL (8.5-10.1)
[2023-11-29 09:43] LABS: ALBUMIN 3.1 g/dl (3.4-5.0)
[2023-11-29 09:45] LABS: BILIRUBIN,DIRECT 1.1 mg/dL (0.0-0.2); CREATININE 0.7 mg/dL (0.55-1.3)
[2023-11-29 09:47] LABS: BILIRUBIN,TOTAL 1.6 mg/dL (0.2-1); TOT PROT 6.1 g/dl (6.4-8.2)
[2023-11-29] MEDS: FOSAPREPITANT DIMEGLUMINE 150 MG in SODIUM CHLORIDE 145 ML IVPB ONE (10:00)
[2023-11-29] MEDS: PALONOSETRON HCL 0.25 MG/5 ML VIAL IVPUSH ONE (10:37)
[2023-11-29] MEDS: DEXAMETHASONE SODIUM PHOSPHATE 10 MG in SODIUM CHLORIDE 50 ML IVPB ONE (10:41)
[2023-11-29] MEDS: ATROPINE SO4 0.4 MG/1 ML VIAL IVPUSH ONE (13:27)
[2023-11-29] MEDS: LEUCOVORIN CALCIUM IVPB ONE (13:29)
[2023-11-29] MEDS: WATER IVPB ONE ×2 (13:29→14:10)
[2023-11-29] MEDS: DEXTROSE 5% IVPB ONE ×2 (13:29→14:10)
[2023-11-29] MEDS: POTASSIUM CHLORIDE TABS 20 MEQ TABLET.ER (FP) PO SCH (13:32)
[2023-11-29] MEDS: IRINOTECAN HCL IVPB ONE (14:10)
[2023-11-29] MEDS: SODIUM CHLORIDE CP ONE (15:51)
[2023-11-29] MEDS: FLUOROURACIL CP ONE (15:51)
[2023-11-29 16:20] VITALS: RESP 18; TEMP 98.3
[2023-11-29 16:38] VITALS: BP 147/72; PULSE 91
[2023-11-29] MEDS ORDERED: PORTA CATH FLUSH 10 ML IVPUSH PRN (16:38)
== END 2023-11-29 16:15 | disposition home or self-care (01) ==
LOC: JONCCHEMO 08:48 → J7W 08:49 → JONCCHEMO 16:15
PROVIDERS: ATTEND Internal Medicine Hematology & Oncology
DX: Z51.11 Encounter for antineoplastic chemotherapy (principal); C25.2 Malignant neoplasm of tail of pancreas
CPT/HCPCS: 36415; 80048; 80076; 85025; 96367; 96368; 96375; 96413; 96415; 96417; G0498; J1453; J2469; J9206; J9263

== ENCOUNTER 2023-12-13 08:34 | Day surgery (SDC) | payer OTHER ==
[~2023-12-13 08:34] MED LIST changes: +ATROPINE SO4 0.4 MG/1 ML VIAL IVPUSH ONE; -SODIUM CHLORIDE 250 ML IV ONE
[2023-12-13 08:49] LABS: EOS % 2.2 % (0-4.5); HEMATOCRIT 30.3 % (35.4-49); HEMOGLOBIN 10.2 GM/dL (11.7-16.9); LYMPH % 22.9 % (8-40); MCH 31.9 pg (25.7-33.7); MCHC 33.7 g/dl (32.0-35.9); MEAN CELL VOLUME 94.7 fl (80-96); MEAN PLT VOLUME 8.6 fl (7.5-11.1); MONO % 10.3 % (3.8-10.2); NEUT % 63.6 % (42.8-82.8); PLATELET COUNT 195 10^3/uL (134-434); WHITE BLOOD COUNT 3.9 K/mm3 (4.0-10.0)
[2023-12-13 09:06] LABS: POTASSIUM 3.2 mmol/L (3.5-5.1)
[2023-12-13 09:09] LABS: ALBUMIN 2.8 g/dl (3.4-5.0); BLOOD UREA NITROGEN 11.2 mg/dL (7-18); CALCIUM 9.9 mg/dL (8.5-10.1)
[2023-12-13 09:12] LABS: BILIRUBIN,DIRECT 1.6 mg/dL (0.0-0.2); CREATININE 0.8 mg/dL (0.55-1.3)
[2023-12-13 09:14] LABS: BILIRUBIN,TOTAL 2.3 mg/dL (0.2-1)
[2023-12-13] MEDS: SODIUM CHLORIDE 250 ML IV ONE (09:20)
[2023-12-13] MEDS: FOSAPREPITANT DIMEGLUMINE 150 MG in SODIUM CHLORIDE 145 ML IVPB ONE (10:30)
[2023-12-13] MEDS: DEXAMETHASONE SODIUM PHOSPHATE 10 MG in SODIUM CHLORIDE 50 ML IVPB ONE (11:06)
[2023-12-13] MEDS: PALONOSETRON HCL 0.25 MG/5 ML VIAL IVPUSH ONE (11:19)
[2023-12-13] MEDS: ATROPINE SO4 0.4 MG/1 ML VIAL IVPUSH ONE (13:36)
[2023-12-13] MEDS: WATER IVPB ONE ×2 (13:45→13:46)
[2023-12-13] MEDS: DEXTROSE 5% IVPB ONE ×2 (13:45→13:46)
[2023-12-13] MEDS: LEUCOVORIN CALCIUM IVPB ONE (13:45)
[2023-12-13] MEDS: POTASSIUM CHLORIDE TABS 20 MEQ TABLET.ER (FP) PO SCH (13:45)
[2023-12-13] MEDS: IRINOTECAN HCL IVPB ONE (13:46)
[2023-12-13 15:14] VITALS: TEMP 98.8
[2023-12-13] MEDS ORDERED: PORTA CATH FLUSH 10 ML IVPUSH PRN (15:19)
[2023-12-13] MEDS: SODIUM CHLORIDE CP ONE (16:10)
[2023-12-13] MEDS: FLUOROURACIL CP ONE (16:10)
[2023-12-13 16:28] VITALS: BP 162/80; PULSE 104; RESP 20
== END 2023-12-13 16:35 | disposition home or self-care (01) ==
LOC: J7W 08:34 → JONCCHEMO 08:34
PROVIDERS: ATTEND Internal Medicine Hematology & Oncology
DX: Z51.11 Encounter for antineoplastic chemotherapy (principal); C25.2 Malignant neoplasm of tail of pancreas
CPT/HCPCS: 36415; 80048; 80076; 85025; 96367; 96375; 96413; 96415; 96417; G0498; J1453; J2469; J9206; J9263

== ENCOUNTER 2023-12-15 12:53 | Day surgery (SDC) | payer OTHER ==
[2023-12-15 15:25] VITALS: BP 145/74; PULSE 83; RESP 20; TEMP 97.9
== END 2023-12-15 14:25 | disposition home or self-care (01) ==
LOC: JONCCHEMO 12:53 → J7W 12:54 → JONCCHEMO 14:25
PROVIDERS: ATTEND Internal Medicine Hematology & Oncology
DX: Z51.11 Encounter for antineoplastic chemotherapy (principal); C25.2 Malignant neoplasm of tail of pancreas

== ENCOUNTER 2023-12-27 08:39 | Day surgery (SDC) | payer OTHER ==
[2023-12-27] MEDS: SODIUM CHLORIDE 250 ML IV ONE (09:32)
[2023-12-27 09:35] VITALS: RESP 18; TEMP 98.7
[2023-12-27 09:46] LABS: BASO % 0.7 % (0-2.0); EOS % 2.4 % (0-4.5); HEMATOCRIT 29.3 % (35.4-49); HEMOGLOBIN 9.9 GM/dL (11.7-16.9); LYMPH % 28.2 % (8-40); MCH 31.8 pg (25.7-33.7); MCHC 33.6 g/dl (32.0-35.9); MEAN CELL VOLUME 94.7 fl (80-96); MONO % 13.7 % (3.8-10.2); PLATELET COUNT 162 10^3/uL (134-434); RDW 17.2 % (11.9-15.9); WHITE BLOOD COUNT 3.4 K/mm3 (4.0-10.0)
[2023-12-27 10:08] LABS: POTASSIUM 3.7 mmol/L (3.5-5.1)
[2023-12-27 10:10] LABS: BLOOD UREA NITROGEN 8.2 mg/dL (7-18); CALCIUM 9.8 mg/dL (8.5-10.1)
[2023-12-27 10:11] LABS: ALBUMIN 2.6 g/dl (3.4-5.0)
[2023-12-27 10:14] LABS: CREATININE 0.7 mg/dL (0.55-1.3)
[2023-12-27 10:15] LABS: BILIRUBIN,TOTAL 2.7 mg/dL (0.2-1); TOT PROT 5.8 g/dl (6.4-8.2)
[2023-12-27] MEDS: FOSAPREPITANT DIMEGLUMINE 150 MG in SODIUM CHLORIDE 145 ML IVPB ONE (10:53)
[2023-12-27] MEDS: DEXAMETHASONE SODIUM PHOSPHATE 10 MG in SODIUM CHLORIDE 50 ML IVPB ONE (11:39)
[2023-12-27] MEDS: PALONOSETRON HCL 0.25 MG/5 ML VIAL IVPUSH ONE (12:13)
[2023-12-27] MEDS: DEXTROSE 5% IVPB ONE ×2 (14:25→14:50)
[2023-12-27] MEDS: WATER IVPB ONE ×2 (14:25→14:50)
[2023-12-27] MEDS: LEUCOVORIN CALCIUM IVPB ONE (14:25)
[2023-12-27] MEDS: ATROPINE SO4 0.4 MG/1 ML VIAL IVPUSH ONE (14:49)
[2023-12-27] MEDS: IRINOTECAN HCL IVPB ONE (14:50)
[2023-12-27] MEDS: SODIUM CHLORIDE CP ONE (16:37)
[2023-12-27] MEDS: FLUOROURACIL CP ONE (16:37)
[2023-12-27] MEDS: PORTA CATH FLUSH 10 ML IVPUSH PRN (16:40)
[2023-12-27 16:49] VITALS: BP 145/63; PULSE 90
== END 2023-12-27 16:56 | disposition home or self-care (01) ==
LOC: JONCCHEMO 08:39 → J7W 08:40 → JONCCHEMO 16:56
PROVIDERS: ATTEND Internal Medicine Hematology & Oncology
DX: Z51.11 Encounter for antineoplastic chemotherapy (principal); C25.2 Malignant neoplasm of tail of pancreas
CPT/HCPCS: 36415; 80048; 80076; 85025; 96367; 96375; 96413; 96415; 96417; G0498; J1453; J2469; J9206; J9263

== ENCOUNTER 2024-01-10 08:48 | Day surgery (SDC) | payer OTHER ==
[2024-01-10] MEDS: SODIUM CHLORIDE 250 ML IV ONE (10:15)
[2024-01-10 10:27] LABS: BASO % 0.9 % (0-2.0); EOS % 2.2 % (0-4.5); HEMOGLOBIN 10.1 GM/dL (11.7-16.9); LYMPH % 22.3 % (8-40); MCH 31.2 pg (25.7-33.7); MCHC 32.5 g/dl (32.0-35.9); MEAN PLT VOLUME 9.6 fl (7.5-11.1); MONO % 11.6 % (3.8-10.2); PLATELET COUNT 198 10^3/uL (134-434); RBC 3.23 M/mm3 (4.00-5.60); RDW 18.4 % (11.9-15.9); WHITE BLOOD COUNT 4.3 K/mm3 (4.0-10.0)
[2024-01-10 10:38] LABS: POTASSIUM 3.5 mmol/L (3.5-5.1)
[2024-01-10 10:41] LABS: ALBUMIN 2.3 g/dl (3.4-5.0); BLOOD UREA NITROGEN 13.1 mg/dL (7-18); CALCIUM 8.8 mg/dL (8.5-10.1)
[2024-01-10 10:44] LABS: BILIRUBIN,DIRECT 3.1 mg/dL (0.0-0.2); CREATININE 0.9 mg/dL (0.55-1.3)
[2024-01-10 10:45] LABS: TOT PROT 5.4 g/dl (6.4-8.2)
[2024-01-10 10:46] LABS: BILIRUBIN,TOTAL 3.8 mg/dL (0.2-1)
[2024-01-10] MEDS: FOSAPREPITANT DIMEGLUMINE 150 MG in SODIUM CHLORIDE 145 ML IVPB ONE (10:54)
[2024-01-10] MEDS: PALONOSETRON HCL 0.25 MG/5 ML VIAL IVPUSH ONE (11:30)
[2024-01-10] MEDS: DEXAMETHASONE SODIUM PHOSPHATE 10 MG in SODIUM CHLORIDE 50 ML IVPB ONE (11:30)
[2024-01-10] MEDS: ATROPINE SO4 0.4 MG/1 ML VIAL IVPUSH ONE (14:14)
[2024-01-10] MEDS: LEUCOVORIN CALCIUM IVPB ONE (14:14)
[2024-01-10] MEDS: DEXTROSE 5% IVPB ONE ×2 (14:14→14:45)
[2024-01-10] MEDS: WATER IVPB ONE ×2 (14:14→14:45)
[2024-01-10] MEDS: IRINOTECAN HCL IVPB ONE (14:45)
[2024-01-10] MEDS: SODIUM CHLORIDE CP ONE (16:40)
[2024-01-10] MEDS: FLUOROURACIL CP ONE (16:40)
[2024-01-10] MEDS: PORTA CATH FLUSH 10 ML IVPUSH PRN (16:48)
[2024-01-10 16:59] VITALS: RESP 20; TEMP 98.6
[2024-01-10 17:12] VITALS: BP 112/65; PULSE 95
== END 2024-01-10 16:50 | disposition home or self-care (01) ==
LOC: JONCCHEMO 08:48 → J7W 08:57 → JONCCHEMO 16:50
PROVIDERS: ATTEND Internal Medicine Hematology & Oncology
DX: Z51.11 Encounter for antineoplastic chemotherapy (principal); C25.2 Malignant neoplasm of tail of pancreas
CPT/HCPCS: 36415; 80048; 80076; 85025; 86301; 96367; 96375; 96409; 96413; 96415; 96417; G0498; J1453; J2469; J9206; J9263

== ENCOUNTER 2024-01-24 08:33 | Day surgery (SDC) | payer OTHER ==
[2024-01-24] MEDS: SODIUM CHLORIDE 250 ML IV ONE (09:32)
[2024-01-24 09:48] LABS: BASO % 1.1 % (0-2.0); EOS % 2.9 % (0-4.5); HEMATOCRIT 26.4 % (35.4-49); HEMOGLOBIN 8.7 GM/dL (11.7-16.9); LYMPH % 34.7 % (8-40); MCH 32.3 pg (25.7-33.7); MEAN PLT VOLUME 9.9 fl (7.5-11.1); MONO % 16.4 % (3.8-10.2); NEUT % 44.9 % (42.8-82.8); PLATELET COUNT 164 10^3/uL (134-434); RBC 2.69 M/mm3 (4.00-5.60); RDW 22.2 % (11.9-15.9); WHITE BLOOD COUNT 2.8 K/mm3 (4.0-10.0)
[2024-01-24 10:01] LABS: POTASSIUM 3.6 mmol/L (3.5-5.1)
[2024-01-24 10:03] LABS: CALCIUM 9.1 mg/dL (8.5-10.1)
[2024-01-24 10:04] LABS: ALBUMIN 2.1 g/dl (3.4-5.0); BLOOD UREA NITROGEN 17.1 mg/dL (7-18)
[2024-01-24 10:07] LABS: CREATININE 0.9 mg/dL (0.55-1.3)
[2024-01-24 10:08] LABS: TOT PROT 4.9 g/dl (6.4-8.2)
[2024-01-24 10:09] LABS: BILIRUBIN,TOTAL 3.6 mg/dL (0.2-1)
[2024-01-24 10:29] LABS: ANISOCYTOSIS 2+; MACROCYTOSIS 1+
[2024-01-24] MEDS: FOSAPREPITANT DIMEGLUMINE 150 MG in SODIUM CHLORIDE 145 ML IVPB ONE (10:35)
[2024-01-24] MEDS: PALONOSETRON HCL 0.25 MG/5 ML VIAL IVPUSH ONE (11:11)
[2024-01-24] MEDS: DEXAMETHASONE SODIUM PHOSPHATE 10 MG in SODIUM CHLORIDE 50 ML IVPB ONE (11:16)
[2024-01-24] MEDS: ATROPINE SO4 0.4 MG/1 ML VIAL IVPUSH ONE (14:17)
[2024-01-24] MEDS: WATER IVPB ONE (14:19)
[2024-01-24] MEDS: LEUCOVORIN CALCIUM IVPB ONE (14:19)
[2024-01-24] MEDS: DEXTROSE 5% IVPB ONE (14:19)
[2024-01-24] MEDS: IRINOTECAN HCL 230 MG in DEXTROSE 5%-WATER - 500 ML IVPB ONE (14:20)
[2024-01-24] MEDS: FLUOROURACIL CP ONE (16:38)
[2024-01-24] MEDS: SODIUM CHLORIDE CP ONE (16:38)
[2024-01-24 17:45] VITALS: BP 113/54; PULSE 104; RESP 20; TEMP 98.3
[2024-01-24] MEDS ORDERED: PORTA CATH FLUSH 10 ML IVPUSH PRN (17:57)
== END 2024-01-24 17:00 | disposition home or self-care (01) ==
LOC: JONCCHEMO 08:33 → J7W 08:34 → JONCCHEMO 17:00
PROVIDERS: ATTEND Internal Medicine Hematology & Oncology
DX: Z51.11 Encounter for antineoplastic chemotherapy (principal); C25.2 Malignant neoplasm of tail of pancreas
CPT/HCPCS: 36415; 80048; 80076; 85025; 96367; 96375; 96413; 96415; 96417; G0498; J1453; J2469; J9206; J9263

== ENCOUNTER 2024-01-26 13:45 | Day surgery (SDC) | payer OTHER ==
[2024-01-26] MEDS: PEGFILGRASTIM (NEULASTA ONPRO) 6 MG/0.6 ML KIT SQ ONE (14:49)
[2024-01-26] MEDS: PORTA CATH FLUSH 10 ML IVPUSH PRN (14:50)
[2024-01-26 16:30] VITALS: BP 107/51; PULSE 91; RESP 18; TEMP 98
== END 2024-01-26 15:00 | disposition home or self-care (01) ==
LOC: JONCCHEMO 13:45
PROVIDERS: ATTEND Internal Medicine Hematology & Oncology
PROC: 3E013GC Introduction of Other Therapeutic Substance into Subcutaneous Tissue, Percutaneous Approach (ICD-10-PCS; principal; 2024-01-26)
DX: C25.2 Malignant neoplasm of tail of pancreas (principal); Z76.89 Persons encountering health services in other specified circumstances
CPT/HCPCS: 96372; J2506

== ENCOUNTER 2024-02-03 15:45 | Inpatient (IN) | payer OTHER ==
[2024-02-03] MEDS ORDERED: ONDANSETRON 4 MG/2 ML VIAL ONE (16:07)
[2024-02-03] MEDS: SODIUM CHLORIDE 0.9% 500 ML INFUS.BAG IV ONE ×3 (16:20→19:54)
[2024-02-03 16:41] LABS: HEMATOCRIT 28.6 % (35.4-49); HEMOGLOBIN 9.4 GM/dL (11.7-16.9); MCH 32.6 pg (25.7-33.7); MCHC 32.9 g/dl (32.0-35.9); MEAN CELL VOLUME 99.1 fl (80-96); PLATELET COUNT 173 10^3/uL (134-434); RBC 2.89 M/mm3 (4.00-5.60); WHITE BLOOD COUNT 9.4 K/mm3 (4.0-10.0)
[2024-02-03 16:50] LABS: VENOUS BASE EXCESS -4.6 mmol/L (-2-2); VENOUS O2 SATURATION 68.4 % (70-80); VENOUS PCO2 26.6 mmHg (38-52); VENOUS PH 7.458 (7.310-7.410)
[2024-02-03] MEDS ORDERED: PANTOPRAZOLE SODIUM 40 MG VIAL ONE (17:00)
[2024-02-03 17:25] LABS: INR 7.92 (0.83-1.09)
[2024-02-03 17:32] LABS: ANISOCYTOSIS 3+; MACROCYTOSIS 1+; OVALOCYTE 1+; TARGET CELLS 1+
[2024-02-03] MEDS: PANTOPRAZOLE SODIUM 40 MG VIAL IVPUSH ONE (17:32)
[2024-02-03 17:35] LABS: LACTIC ACID 6.7 mmol/L (0.4-2.0)
[2024-02-03] MEDS ORDERED: VANCOMYCIN 1 GRAM (PRE-DOCKED) 1,000 MG/250 ML BAG IVPB ONE (18:51)
[2024-02-03] MEDS ORDERED: CEFEPIME 2 GM/100 ML BAG IVPB ONE (18:52)
[2024-02-03 18:57] LABS: CHLORIDE 110 mmol/L (98-107); POTASSIUM 4.6 mmol/L (3.5-5.1); SODIUM 144 mmol/L (136-145)
[2024-02-03 18:59] LABS: CALCIUM 8.7 mg/dL (8.5-10.1)
[2024-02-03 19:00] LABS: ANION GAP 16 mmol/L (4-13); CO2 18 mmol/L (21-32); GLUCOSE,RANDOM 129 mg/dL (74-106)
[2024-02-03 19:03] LABS: CREATININE 2.7 mg/dL (0.55-1.3); SGOT/AST 69 U/L (15-37); SGPT/ALT 51 U/L (13-61)
[2024-02-03 19:04] LABS: TOT PROT 4.6 g/dl (6.4-8.2)
[2024-02-03 19:10] LABS: ALK PHOS 688 U/L (45-117); BLOOD UREA NITROGEN 60.5 mg/dL (7-18)
[2024-02-03] MEDS: CEFEPIME HCL 2 GM VIAL (RESTRICTED TO ID) IVPB ONE (19:13)
[2024-02-03] MEDS: VANCOMYCIN 1,000 MG in DEXTROSE 5%-WATER - 250 ML IVPB ONE (19:13)
[2024-02-03 19:31] LABS: ALBUMIN 1.9 g/dl (3.4-5.0); CALCIUM 8.5 mg/dL (8.5-10.1)
[2024-02-03 19:32] LABS: BLOOD UREA NITROGEN 56.3 mg/dL (7-18)
[2024-02-03 19:35] LABS: CREATININE 2.6 mg/dL (0.55-1.3)
[2024-02-03] MEDS ORDERED: SODIUM CHLORIDE 0.9% 500 ML INFUS.BAG IV ONE (19:35)
[2024-02-03 19:36] LABS: BILIRUBIN,TOTAL 2.9 mg/dL (0.2-1); TOT PROT 4.2 g/dl (6.4-8.2)
[2024-02-03] MEDS ORDERED: FENTANYL CITRATE/PF 50 MCG/ML VIAL ONE (19:41)
[2024-02-03 20:08] LABS: LACTIC ACID 6.4 mmol/L (0.4-2.0)
[2024-02-03 22:26] LABS: BILIRUBIN,DIRECT 2.4 mg/dL (0.0-0.2)
[2024-02-03] MEDS: SODIUM CHLORIDE 1,000 ML IV STA (23:41)
[2024-02-03] MEDS: SODIUM CHLORIDE 1,000 ML IV SCH (23:41)
[2024-02-04 01:14] LABS: LACTIC ACID 2.8 mmol/L (0.4-2.0)
[2024-02-04 09:22] LABS: HEMATOCRIT 26.3 % (35.4-49); HEMOGLOBIN 8.8 GM/dL (11.7-16.9); MCH 33.1 pg (25.7-33.7); MCHC 33.3 g/dl (32.0-35.9); MEAN CELL VOLUME 99.4 fl (80-96); MEAN PLT VOLUME 10.8 fl (7.5-11.1); PLATELET COUNT 117 10^3/uL (134-434); RBC 2.64 M/mm3 (4.00-5.60); RDW 25.9 % (11.9-15.9); WHITE BLOOD COUNT 7.7 K/mm3 (4.0-10.0)
[2024-02-04] MEDS: PANTOPRAZOLE SODIUM 40 MG VIAL IVPUSH SCH (09:27)
[2024-02-04] MEDS: SODIUM CHLORIDE 1,000 ML IV SCH ×2 (09:27→12:45)
[2024-02-04 09:28] LABS: PROTHROMBIN TIME (PATIENT) 67.9 SEC (9.7-13.0)
[2024-02-04 09:54] LABS: POTASSIUM 3.9 mmol/L (3.5-5.1)
[2024-02-04 09:57] LABS: ALBUMIN 1.7 g/dl (3.4-5.0); CALCIUM 7.9 mg/dL (8.5-10.1)
[2024-02-04 09:58] LABS: BLOOD UREA NITROGEN 68.5 mg/dL (7-18); MAGNESIUM 1.9 mg/dL (1.8-2.4)
[2024-02-04 10:00] LABS: BILIRUBIN,DIRECT 2.2 mg/dL (0.0-0.2); CREATININE 2.6 mg/dL (0.55-1.3); PHOSPHOROUS 3.8 mg/dL (2.5-4.9)
[2024-02-04] MEDS ORDERED: PANTOPRAZOLE 40 MG TABLET PO SCH (10:00)
[2024-02-04 10:02] LABS: BILIRUBIN,TOTAL 2.5 mg/dL (0.2-1); TOT PROT 3.8 g/dl (6.4-8.2)
[2024-02-04 10:36] LABS: INR 5.96 (0.83-1.09)
[2024-02-04] MEDS: PHYTONADIONE 10 MG/1 ML AMP IVPB ONE (12:42)
[2024-02-04 13:02] LABS: ANISOCYTOSIS 3+; MACROCYTOSIS 0; TARGET CELLS 1+
[2024-02-04] MEDS: CEFEPIME 1 GM in DEXTROSE 5%-WATER 100 ML IVPB SCH (13:08)
[2024-02-04] MEDS ORDERED: SODIUM CHLORIDE 1,000 ML IV SCH (14:41)
[2024-02-04] MEDS ORDERED: ALBUMIN HUMAN 25% 12.5 GM/50 ML VIAL IV SCH (15:00)
[2024-02-04] MEDS: ALBUMIN HUMAN 25% 12.5 GM/50 ML VIAL IV SCH (16:46)
[2024-02-04] MEDS ORDERED: MIDODRINE HCL 5 MG TABLET PO SCH (18:04)
[2024-02-04] MEDS: MIDODRINE HCL 2.5 MG TABLET PO SCH ×2 (18:09→20:18)
[2024-02-04] MEDS: PANTOPRAZOLE SODIUM 80 MG in SODIUM CHLORIDE 100 ML IVPB SCH ×2 (18:13→20:42)
[2024-02-04] MEDS: SODIUM CHLORIDE 500 ML IV STA ×2 (19:42→21:41)
[2024-02-05 07:57] LABS: HEMATOCRIT 23.2 % (35.4-49); HEMOGLOBIN 7.6 GM/dL (11.7-16.9); MCH 32.8 pg (25.7-33.7); MCHC 32.9 g/dl (32.0-35.9); MEAN CELL VOLUME 99.8 fl (80-96); PLATELET COUNT 100 10^3/uL (134-434); RBC 2.32 M/mm3 (4.00-5.60); WHITE BLOOD COUNT 6.3 K/mm3 (4.0-10.0)
[2024-02-05 08:14] LABS: INR 1.51 (0.83-1.09); PROTHROMBIN TIME (PATIENT) 17.5 SEC (9.7-13.0)
[2024-02-05 08:42] LABS: POTASSIUM 3.8 mmol/L (3.5-5.1)
[2024-02-05 08:55] LABS: CALCIUM 8.4 mg/dL (8.5-10.1)
[2024-02-05 08:56] LABS: BLOOD UREA NITROGEN 78.1 mg/dL (7-18)
[2024-02-05 08:59] LABS: CREATININE 2.7 mg/dL (0.55-1.3)
[2024-02-05 09:08] LABS: ALBUMIN 2.2 g/dl (3.4-5.0)
[2024-02-05] MEDS: VANCOMYCIN ORAL SOLUTION 125 MG/2.5 ML PO SCH (17:35)
[2024-02-05] MEDS: NYSTATIN 500,000 UNITS/5 ML SUSPENSION PO SCH (17:35)
[2024-02-05 20:58] LABS: HEMOGLOBIN 8.7 GM/dL (11.7-16.9); MCH 32.7 pg (25.7-33.7); MCHC 33.4 g/dl (32.0-35.9); MEAN CELL VOLUME 97.9 fl (80-96); MEAN PLT VOLUME 10.3 fl (7.5-11.1); PLATELET COUNT 115 10^3/uL (134-434); RBC 2.66 M/mm3 (4.00-5.60); RDW 24.4 % (11.9-15.9); WHITE BLOOD COUNT 9.3 K/mm3 (4.0-10.0)
[2024-02-06 08:58] LABS: HEMATOCRIT 25.6 % (35.4-49); HEMOGLOBIN 8.7 GM/dL (11.7-16.9); MCH 32.9 pg (25.7-33.7); MCHC 33.8 g/dl (32.0-35.9); MEAN CELL VOLUME 97.3 fl (80-96); MEAN PLT VOLUME 10.3 fl (7.5-11.1); PLATELET COUNT 106 10^3/uL (134-434); RBC 2.63 M/mm3 (4.00-5.60); RDW 24.6 % (11.9-15.9); WHITE BLOOD COUNT 7.7 K/mm3 (4.0-10.0)
[2024-02-06 09:06] LABS: INR 1.44 (0.83-1.09); PROTHROMBIN TIME (PATIENT) 16.7 SEC (9.7-13.0)
[2024-02-06] MEDS: FAMOTIDINE 10 MG TABLET PO SCH (09:30)
[2024-02-06 09:34] LABS: POTASSIUM 3.6 mmol/L (3.5-5.1)
[2024-02-06 09:36] LABS: BLOOD UREA NITROGEN 74.2 mg/dL (7-18); CALCIUM 8.8 mg/dL (8.5-10.1)
[2024-02-06 09:37] LABS: ALBUMIN 1.9 g/dl (3.4-5.0)
[2024-02-06 09:39] LABS: CREATININE 2.3 mg/dL (0.55-1.3)
[2024-02-06 09:41] LABS: BILIRUBIN,TOTAL 4.3 mg/dL (0.2-1); TOT PROT 3.9 g/dl (6.4-8.2)
[2024-02-06] MEDS: fentaNYL 12mcg/hr PATCH.TD72 TD SCH (13:26)
[2024-02-06 14:34] LABS: BF WBC & OTHER NUCLEATED CELLS 134 /mm3
[2024-02-06 14:35] LABS: BODY FLUID MESOTHELIAL 5 %; BODY FLUID MONOCYTE 15 %
[2024-02-06] MEDS: ALBUMIN HUMAN 25% 12.5 GM/50 ML VIAL IV SCH (15:13)
[2024-02-07 09:06] LABS: HEMATOCRIT 27.5 % (35.4-49); HEMOGLOBIN 9.1 GM/dL (11.7-16.9); MCHC 33.3 g/dl (32.0-35.9); MEAN CELL VOLUME 99.2 fl (80-96); PLATELET COUNT 100 10^3/uL (134-434); RBC 2.77 M/mm3 (4.00-5.60); RDW 25.2 % (11.9-15.9); WHITE BLOOD COUNT 7.1 K/mm3 (4.0-10.0)
[2024-02-07 09:20] LABS: INR 1.45 (0.83-1.09); PROTHROMBIN TIME (PATIENT) 16.8 SEC (9.7-13.0)
[2024-02-07 09:26] LABS: POTASSIUM 3.3 mmol/L (3.5-5.1)
[2024-02-07 09:33] LABS: ALBUMIN 2.1 g/dl (3.4-5.0); BLOOD UREA NITROGEN 61.2 mg/dL (7-18); CALCIUM 9.1 mg/dL (8.5-10.1)
[2024-02-07 09:34] LABS: BILIRUBIN,TOTAL 5.6 mg/dL (0.2-1); TOT PROT 4.1 g/dl (6.4-8.2)
[2024-02-07 09:36] LABS: CREATININE 1.7 mg/dL (0.55-1.3)
[2024-02-07 17:09] LABS: BODY FLUID ALBUMIN 0.7 g/dL (Not Estab.)
[2024-02-07] MEDS: POTASSIUM CHLORIDE TABS 20 MEQ TABLET.ER (FP) PO ONE ×2 (18:19→22:45)
[2024-02-08 08:27] LABS: HEMATOCRIT 28.1 % (35.4-49); HEMOGLOBIN 9.5 GM/dL (11.7-16.9); MCH 33.6 pg (25.7-33.7); MCHC 33.8 g/dl (32.0-35.9); MEAN CELL VOLUME 99.6 fl (80-96); MEAN PLT VOLUME 9.6 fl (7.5-11.1); PLATELET COUNT 90 10^3/uL (134-434); RBC 2.82 M/mm3 (4.00-5.60); RDW 26.2 % (11.9-15.9); WHITE BLOOD COUNT 7.1 K/mm3 (4.0-10.0)
[2024-02-08 08:29] LABS: POTASSIUM 3.9 mmol/L (3.5-5.1)
[2024-02-08 09:13] LABS: ALBUMIN 1.9 g/dl (3.4-5.0); BLOOD UREA NITROGEN 48.8 mg/dL (7-18)
[2024-02-08 09:16] LABS: CREATININE 1.2 mg/dL (0.55-1.3)
[2024-02-08 09:17] LABS: BILIRUBIN,TOTAL 6.3 mg/dL (0.2-1); TOT PROT 3.9 g/dl (6.4-8.2)
[2024-02-08] MEDS ORDERED: MIDODRINE HCL 5 MG TABLET PO SCH (15:46)
[2024-02-08] MEDS: MIDODRINE HCL 5 MG TABLET PO SCH (21:43)
[2024-02-10 12:06] LABS: BASO % 0.9 % (0-2.0); EOS % 0.6 % (0-4.5); HEMATOCRIT 27.6 % (35.4-49); LYMPH % 9.3 % (8-40); MCH 33.5 pg (25.7-33.7); MCHC 32.7 g/dl (32.0-35.9); MEAN CELL VOLUME 102.4 fl (80-96); MEAN PLT VOLUME 10.3 fl (7.5-11.1); MONO % 5.5 % (3.8-10.2); NEUT % 83.7 % (42.8-82.8); PLATELET COUNT 90 10^3/uL (134-434); RDW 26.5 % (11.9-15.9); WHITE BLOOD COUNT 9.5 K/mm3 (4.0-10.0)
[2024-02-10 13:24] LABS: ALBUMIN 1.8 g/dl (3.4-5.0); BILIRUBIN,TOTAL 6.7 mg/dL (0.2-1); BLOOD UREA NITROGEN 36.8 mg/dL (7-18); CALCIUM 9.2 mg/dL (8.5-10.1); CREATININE 0.9 mg/dL (0.55-1.3); POTASSIUM 4.3 mmol/L (3.5-5.1); TOT PROT 3.7 g/dl (6.4-8.2)
[2024-02-10] MEDS: MIDODRINE HCL 5 MG TABLET PO SCH (18:42)
[2024-02-11 09:21] LABS: BASO % 1.4 % (0-2.0); EOS % 0.2 % (0-4.5); HEMATOCRIT 26.8 % (35.4-49); HEMOGLOBIN 8.9 GM/dL (11.7-16.9); LYMPH % 7.3 % (8-40); MCH 33.8 pg (25.7-33.7); MEAN CELL VOLUME 102.2 fl (80-96); MEAN PLT VOLUME 10.2 fl (7.5-11.1); MONO % 5.8 % (3.8-10.2); NEUT % 85.3 % (42.8-82.8); PLATELET COUNT 80 10^3/uL (134-434); RBC 2.62 M/mm3 (4.00-5.60); WHITE BLOOD COUNT 9.8 K/mm3 (4.0-10.0)
[2024-02-11 09:50] LABS: POTASSIUM 4.1 mmol/L (3.5-5.1)
[2024-02-11 10:05] LABS: CALCIUM 9.4 mg/dL (8.5-10.1)
[2024-02-11 10:06] LABS: ALBUMIN 1.8 g/dl (3.4-5.0); BLOOD UREA NITROGEN 34.5 mg/dL (7-18)
[2024-02-11 10:08] LABS: MAGNESIUM 1.9 mg/dL (1.8-2.4)
[2024-02-11 10:09] LABS: BILIRUBIN,TOTAL 7.4 mg/dL (0.2-1); PHOSPHOROUS 2.1 mg/dL (2.5-4.9)
[2024-02-11 10:11] LABS: TOT PROT 3.9 g/dl (6.4-8.2)
[2024-02-11] MEDS: HYDROmorphone HCl 2 MG/ML VIAL IVPB PRN (12:48)
[2024-02-12] MEDS: fentaNYL 25mcg/hr PATCH.TD72 TD SCH (10:32)
[2024-02-12] MEDS: FENTANYL PATCH WASTE TD PRN (11:13)
[2024-02-12] MEDS ORDERED: fentaNYL 12mcg/hr PATCH.TD72 TD SCH (12:00)
[2024-02-12] MEDS ORDERED: FENTANYL PATCH WASTE TD PRN (16:46)
[2024-02-13 10:55] LABS: HEMATOCRIT 27.9 % (35.4-49); HEMOGLOBIN 9.3 GM/dL (11.7-16.9); MCH 34.2 pg (25.7-33.7); MCHC 33.3 g/dl (32.0-35.9); MEAN CELL VOLUME 102.7 fl (80-96); MEAN PLT VOLUME 10.3 fl (7.5-11.1); PLATELET COUNT 98 10^3/uL (134-434); RBC 2.72 M/mm3 (4.00-5.60); RDW 26.1 % (11.9-15.9); WHITE BLOOD COUNT 10.3 K/mm3 (4.0-10.0)
[2024-02-13 11:12] LABS: POTASSIUM 5.4 mmol/L (3.5-5.1)
[2024-02-13 11:13] LABS: CALCIUM 9.4 mg/dL (8.5-10.1)
[2024-02-13 11:14] LABS: ALBUMIN 1.6 g/dl (3.4-5.0)
[2024-02-13 11:17] LABS: CREATININE 1.1 mg/dL (0.55-1.3)
[2024-02-13 11:19] LABS: BILIRUBIN,TOTAL 7.7 mg/dL (0.2-1); TOT PROT 4.1 g/dl (6.4-8.2)
[2024-02-14] MEDS ORDERED: LIDOCAINE VISCOUS 2% ORAL/TOP 15 ML UNIT-DOSE CUP MM PRN (11:10)
[2024-02-14] MEDS: LIDOCAINE VISCOUS 2% ORAL/TOP 15 ML UNIT-DOSE CUP MM PRN (18:00)
[2024-02-14] MEDS: SODIUM ZIRCONIUM CYCLOSILICATE (LOKELMA) 5 GM PACKET PO ONE (18:53)
[2024-02-14 21:29] VITALS: BMI 28.6
[2024-02-15] MEDS: fentaNYL 50mcg/hr PATCH.TD72 TD SCH (11:50)
[2024-02-15] MEDS: FENTANYL PATCH WASTE TD PRN (12:47)
[2024-02-16] MEDS: VANCOMYCIN ORAL SOLUTION 125 MG/2.5 ML PO SCH (09:11)
[2024-02-16] MEDS: LIDOCAINE 4% PATCH TP SCH (11:19)
[2024-02-16] MEDS: ALBUMIN HUMAN 25% 100 ML VIAL IV ONE (11:44)
[2024-02-16] MEDS: LIDOCAINE PATCH REMOVAL MC SCH (22:02)
[2024-02-20 09:50] VITALS: RESP 16
[2024-02-20] MEDS ORDERED: MORPHINE SULFATE/0.9% NACL/PF 100 MG/100 ML BAG IVPB SCH (14:30)
[2024-02-20] MEDS: FENTANYL PATCH WASTE TD PRN (14:33)
[2024-02-20] MEDS ORDERED: MORPHINE 100 MG/100 ML MG ONE (14:37)
[2024-02-20] MEDS: MORPHINE 100 MG/100 ML MG IVPB SCH (14:50)
[2024-02-20 21:51] VITALS: TEMP 97.5
[2024-02-21 06:37] VITALS: BP 61/31; PULSE 107
== END 2024-02-21 11:56 | disposition expired | DRG 435 ==
LOC: JER 15:45 → JERBED 20:35 → J6S 02-04 00:17
PROVIDERS: ADMIT Internal Medicine; ATTEND Internal Medicine
PROC: 30233N1 Transfusion of Nonautologous Red Blood Cells into Peripheral Vein, Percutaneous Approach (ICD-10-PCS; 2024-02-05)
PROC: 0W9G3ZZ Drainage of Peritoneal Cavity, Percutaneous Approach (ICD-10-PCS; principal; 2024-02-06)
PROC: 0JH83XZ Insertion of Tunneled Vascular Access Device into Abdomen Subcutaneous Tissue and Fascia, Percutaneous Approach (ICD-10-PCS; 2024-02-15)
DX: C78.7 Secondary malignant neoplasm of liver and intrahepatic bile duct (principal); I81 Portal vein thrombosis; K72.00 Acute and subacute hepatic failure without coma; R18.8 Other ascites; N17.9 Acute kidney failure, unspecified; C78.00 Secondary malignant neoplasm of unspecified lung; I24.89 Other forms of acute ischemic heart disease; K92.1 Melena; E87.20 Acidosis, unspecified; A04.72 Enterocolitis due to Clostridium difficile, not specified as recurrent; D68.9 Coagulation defect, unspecified; C25.2 Malignant neoplasm of tail of pancreas; R44.3 Hallucinations, unspecified; D62 Acute posthemorrhagic anemia; E87.0 Hyperosmolality and hypernatremia; I10 Essential (primary) hypertension; E78.5 Hyperlipidemia, unspecified; M88.9 Osteitis deformans of unspecified bone; C61 Malignant neoplasm of prostate; R13.10 Dysphagia, unspecified; D69.6 Thrombocytopenia, unspecified
CPT/HCPCS: 0241U-QW; 36415; 36430; 49418; 71045-TC-FY; 74176-TC; 74220-TC-FY; 76775-TC; 76942-TC; 80048; 80053; 80076; 82042; 82140; 82150; 82248; 82272; 82465; 82550; 82570; 82803; 82945; 83605; 83615; 83735; 83986; 84100; 84157; 84300; 84478; 84484; 85025; 85027; 85220; 85240; 85260; 85379; 85384; 85610; 85730; 86301; 86850; 86900; 86901; 86922; 87040; 87070; 87075; 87086; 87102; 87116; 87205; 87206; 87210; 87324; 87449; 87798; 88108; 88305-TC; 93005; 93010; 97116-GP; 97161-GP; 99291; G0480; P9047; P9058